=== PATIENT | male | born 1970 | race African-American/Black ===

== ENCOUNTER 2021-05-18 07:15 | Inpatient (IN) | payer MEDICAID ==
[~2021-05-18] VITALS: Ht 172.7 cm; Wt 75.2 kg
[~2021-05-18 07:15] MED LIST: RISP1TAB48 PO
[2021-05-18] MEDS ORDERED: KETOROLAC TROMETHAMINE 30 MG/ML VIAL IVP ONE (07:45)
[2021-05-18] MEDS ORDERED: SODIUM CHLORIDE 0.9% 1,000 ML IV ONE (07:45)
[2021-05-18] MEDS ORDERED: ACETAMINOPHEN 500 MG TABLET PO ONE (07:45)
[2021-05-18 08:15] LABS: BASOPHILS % (AUTO) 0.4 % (0.0-2.0); EOSINOPHILS % (AUTO) 0.7 % (1.0-6.0); HEMOGLOBIN 14.1 g/dL (13.5-17.5); LYMPHOCYTES # (AUTO) 1.6 K/uL (1.0-4.8); LYMPHOCYTES % (AUTO) 27.5 % (22.0-44.0); MEAN CORPUSCULAR HEMOGLOBIN 30.5 pg (26.0-34.0); MEAN CORPUSCULAR HGB CONC 33.6 G/dL (31.0-37.0); MEAN CORPUSCULAR VOLUME 91 fL (80-100); MONOCYTES # (AUTO) 0.5 K/uL (0.1-1.0); NEUTROPHILS # (AUTO) 3.7 K/uL (1.8-7.7); NEUTROPHILS % (AUTO) 62.4 % (40.0-70.0); PLATELET COUNT (AUTO) 347 K/uL (150-450); RED BLOOD CELL COUNT(AUTO) 4.63 MIL/uL (4.50-5.90)
[2021-05-18 08:16] LABS: COVID AG,FIA SOURCE NASOPHARYNGEAL
[2021-05-18 08:23] LABS: ANION GAP 9 mmol/L (8-16); CALCIUM, TOTAL 8.9 mg/dL (8.8-10.5); CARBON DIOXIDE 27 mmol/L (22-29); CHLORIDE 103 mmol/L (98-107); GLOMERULAR FILTR. RATE CALC > 60 mL/min (>60); GLUCOSE,RANDOM 109 mg/dL (70-110); POTASSIUM 4.8 mmol/L (3.5-5.1); SODIUM SERUM 139 mmol/L (136-145); UREA NITROGEN, BLOOD 25 mg/dL (7-18)
[2021-05-18 08:29] LABS: ALANINE AMINOTRANSFERASE 163 U/L (12-78); ALBUMIN 3.5 g/dL (3.4-5.0); ALKALINE PHOSPHATASE 135 U/L (46-116); ASPARTATE AMINOTRANSFERASE 69 U/L (15-37); BILIRUBIN,TOTAL 0.7 mg/dL (0.1-1.0)
[2021-05-18 08:39] LABS: INFLUENZA TYPE A NEGATIVE FOR TYPE A (NEGATIVE); INFLUENZA TYPE B NEGATIVE FOR TYPE B (NEGATIVE)
[2021-05-18 08:42] LABS: B-TYPE NATRIURETIC PEPTIDE 801 pg/mL (0-100)
[2021-05-18] MEDS ORDERED: AZITHROMYCIN 500 MG/NS 250 ML IV ONE (09:00)
[2021-05-18] MEDS ORDERED: CefTRIAXone 1 GM/DEXTROSE 50 ML IV ONE (09:00)
[2021-05-18] MEDS ORDERED: NITROGLYCERIN 2% (1 GM=INCH) PACKET TP ONE (09:00)
[2021-05-18] MEDS ORDERED: ASPIRIN 325 MG TABLET PO ONE (09:00)
[2021-05-18] MEDS ORDERED: ONDANSETRON HCL 4 MG/2 ML VIAL IVP ONE (09:30)
[2021-05-18] MEDS ORDERED: 0.9% SODIUM CHLORIDE 10 ML SYRINGE IVP PRN (09:45)
[2021-05-18] MEDS ORDERED: MORPHINE SULFATE 10 MG/ML VIAL IVP ONE (09:45)
[2021-05-18] MEDS ORDERED: ONDANSETRON HCL 4 MG/2 ML VIAL IVP PRN ×2 (09:45→20:00)
[2021-05-18] MEDS ORDERED: ACETAMINOPHEN 325 MG TABLET PO PRN ×2 (09:45→20:00)
[2021-05-18 10:09] LABS: CREATINE KINASE, TOTAL ONLY 119 U/L (39-308); FREE T4 (FREE THYROXINE) 1.33 ng/dL (0.76-1.46); THYROID STIMULATING HORMONE 1.89 uIU/mL (0.36-3.74)
[2021-05-18] MEDS ORDERED: SODIUM CHLORIDE 0.9% 500 ML IV ONE (10:30)
[2021-05-18] MEDS ORDERED: HEPARIN SODIUM,PORCINE 5,000 UNITS/ML VIAL IVP PRN ×2 (11:15)
[2021-05-18] MEDS ORDERED: HEPARIN SODIUM 25000 UNITS/D5W 250 ML IV PRN (11:15)
[2021-05-18] MEDS ORDERED: NITROGLYCERIN 0.4 MG SUBLINGUAL TABLET #25 SL PRN (11:45)
[2021-05-18] MEDS ORDERED: FUROSEMIDE 40 MG/4 ML VIAL IVP ONE ×2 (12:15→17:15)
[2021-05-18 12:26] LABS: GLUCOSE,POINT OF CARE 163 MG/DL (70-110)
[2021-05-18] MEDS ORDERED: BISACODYL 10 MG RECTAL RECTAL SUPPOSITORY PR PRN (20:00)
[2021-05-18] MEDS ORDERED: ALBUTEROL SULFATE 2.5 MG/0.5 ML NEB SOLUTION NEB PRN (20:00)
[2021-05-18] MEDS ORDERED: HYDROCODONE/ACETAMINOPHEN 5-325 MG TABLET PO PRN (20:00)
[2021-05-18] MEDS ORDERED: MAGNESIUM HYDROXIDE SUSPENSION 30 ML UDCUP PO PRN (20:00)
[2021-05-18] MEDS ORDERED: IPRATROPIUM BROMIDE 0.5 MG/2.5 ML NEB SOLUTION NEB PRN (20:00)
[2021-05-18] MEDS: FUROSEMIDE 40 MG/4 ML VIAL IVP SCH (20:26)
[2021-05-18] MEDS: CARVEDILOL 3.125 MG TABLET PO SCH (20:26)
[2021-05-18] MEDS ORDERED: CARVEDILOL 3.125 MG TABLET PO SCH (21:00)
[2021-05-19] MEDS ORDERED: LORazepam 2 MG/ML VIAL IVP ONE (00:45)
[2021-05-19] MEDS ORDERED: HEPARIN SODIUM,PORCINE 5,000 UNITS/ML VIAL IVP PRN ×2 (05:15)
[2021-05-19] MEDS ORDERED: HEPARIN SODIUM 25000 UNITS/D5W 250 ML IV PRN (05:15)
[2021-05-19 05:34] LABS: BASOPHILS % (AUTO) 0.7 % (0.0-2.0); EOSINOPHILS % (AUTO) 0.9 % (1.0-6.0); HEMATOCRIT 38.6 % (41-53); HEMOGLOBIN 12.9 g/dL (13.5-17.5); LYMPHOCYTES # (AUTO) 2.6 K/uL (1.0-4.8); LYMPHOCYTES % (AUTO) 34.5 % (22.0-44.0); MEAN CORPUSCULAR HEMOGLOBIN 30.1 pg (26.0-34.0); MEAN CORPUSCULAR HGB CONC 33.3 G/dL (31.0-37.0); MEAN CORPUSCULAR VOLUME 90 fL (80-100); MONOCYTES # (AUTO) 0.9 K/uL (0.1-1.0); MONOCYTES % (AUTO) 12.3 % (2.0-9.0); NEUTROPHILS # (AUTO) 3.9 K/uL (1.8-7.7); NEUTROPHILS % (AUTO) 51.6 % (40.0-70.0); PLATELET COUNT (AUTO) 321 K/uL (150-450); RED BLOOD CELL COUNT(AUTO) 4.27 MIL/uL (4.50-5.90); RED CELL DISTRIBUTION WIDTH 13.1 % (11.5-14.5)
[2021-05-19 05:51] LABS: BILIRUBIN,TOTAL 0.7 mg/dL (0.1-1.0); CALCIUM, TOTAL 8.1 mg/dL (8.8-10.5); CHOL/HDL RATIO 2.4 (4.2-7.3); CREATININE 1.55 mg/dL (0.60-1.30); HEMOGLOBIN A1C 5.4 % (3.8-5.6); POTASSIUM 4.4 mmol/L (3.5-5.1); TOTAL PROTEIN, SERUM 6.1 g/dL (6.4-8.2)
[2021-05-19] MEDS: FUROSEMIDE 40 MG/4 ML VIAL IVP SCH (09:15)
[2021-05-19] MEDS: PANTOPRAZOLE SODIUM 40 MG/VIAL IVP SCH (09:41)
[2021-05-19] MEDS: CARVEDILOL 3.125 MG TABLET PO SCH (09:42)
[2021-05-19] MEDS: MORPHINE SULFATE 2 MG/ML SYRINGE IVP PRN ×2 (09:42→14:04)
[2021-05-19] MEDS: ATORVASTATIN CALCIUM 20 MG TABLET PO SCH (10:23)
[2021-05-19] MEDS: ASPIRIN 81 MG DR TABLET PO SCH (10:23)
[2021-05-19 11:10] VITALS: BP 176/103
[2021-05-19] MEDS: HydrALAZINE HCL 20 MG/ML VIAL IVP PRN (14:04)
[2021-05-19 19:20] VITALS: BP 126/93
[2021-05-19 20:00] VITALS: BP 129/93
[2021-05-19] MEDS: CARVEDILOL 12.5 MG TABLET PO SCH (21:12)
[2021-05-19 22:00] VITALS: BP 120/88
[2021-05-19] MEDS: ZOLPIDEM TARTRATE 5 MG TABLET PO PRN (23:21)
[2021-05-19 23:40] VITALS: BP 122/89
[2021-05-20] VITALS (10 sets, daily range): BP systolic 116–143; BP diastolic 62–102
[2021-05-20 06:49] LABS: BASOPHILS % (AUTO) 0.5 % (0.0-2.0); EOSINOPHILS % (AUTO) 0.7 % (1.0-6.0); HEMATOCRIT 38.8 % (41-53); HEMOGLOBIN 13.4 g/dL (13.5-17.5); LYMPHOCYTES % (AUTO) 28.7 % (22.0-44.0); MEAN CORPUSCULAR HEMOGLOBIN 30.9 pg (26.0-34.0); MEAN CORPUSCULAR HGB CONC 34.4 G/dL (31.0-37.0); MEAN CORPUSCULAR VOLUME 90 fL (80-100); MONOCYTES # (AUTO) 0.6 K/uL (0.1-1.0); MONOCYTES % (AUTO) 9.2 % (2.0-9.0); NEUTROPHILS # (AUTO) 4.1 K/uL (1.8-7.7); NEUTROPHILS % (AUTO) 60.9 % (40.0-70.0); PLATELET COUNT (AUTO) 311 K/uL (150-450); RED BLOOD CELL COUNT(AUTO) 4.33 MIL/uL (4.50-5.90); RED CELL DISTRIBUTION WIDTH 12.8 % (11.5-14.5)
[2021-05-20 06:58] LABS: ANION GAP 5 mmol/L (8-16); CALCIUM, TOTAL 8.8 mg/dL (8.8-10.5); CARBON DIOXIDE 29 mmol/L (22-29); CHLORIDE 101 mmol/L (98-107); CREATININE 1.34 mg/dL (0.60-1.30); GLOMERULAR FILTR. RATE CALC > 60 mL/min (>60); GLUCOSE,RANDOM 97 mg/dL (70-110); POTASSIUM 4.6 mmol/L (3.5-5.1); SODIUM SERUM 135 mmol/L (136-145); UREA NITROGEN, BLOOD 20 mg/dL (7-18)
[2021-05-20 07:10] LABS: B-TYPE NATRIURETIC PEPTIDE 757 pg/mL (0-100)
[2021-05-20] MEDS: LOSARTAN POTASSIUM 25 MG TABLET PO SCH (08:36)
[2021-05-20] MEDS: PANTOPRAZOLE SODIUM 40 MG/VIAL IVP SCH (08:36)
[2021-05-20] MEDS: FUROSEMIDE 20 MG/2 ML VIAL IVP SCH (08:36)
[2021-05-20] MEDS: ATORVASTATIN CALCIUM 20 MG TABLET PO SCH (08:37)
[2021-05-20] MEDS: CARVEDILOL 12.5 MG TABLET PO SCH ×2 (08:37→19:56)
[2021-05-20] MEDS: ASPIRIN 81 MG DR TABLET PO SCH (08:38)
[2021-05-20] MEDS: LORazepam 2 MG/ML VIAL IVP PRN ×2 (14:37→22:11)
[2021-05-20] MEDS: ZOLPIDEM TARTRATE 5 MG TABLET PO PRN (19:56)
[2021-05-20 23:02] LABS: AMPHET/METH SCREEN,URINE POSITIVE (NEGATIVE); BARBITURATE SCREEN, URINE NEGATIVE (NEGATIVE); BENZODIAZEPINES SCREEN,URINE NEGATIVE (NEGATIVE); CANNABINOID SCREEN,URINE POSITIVE (NEGATIVE); COCAINE SCREEN,URINE NEGATIVE (NEGATIVE); METHADONE SCREEN, URINE NEGATIVE (NEGATIVE); OPIATE SCREEN,URINE POSITIVE (NEGATIVE); PHENCYCLIDINE SCREEN,URINE NEGATIVE (NEGATIVE)
[2021-05-21] VITALS (7 sets, daily range): BP systolic 121–152; BP diastolic 73–110
[2021-05-21] MEDS: HydrALAZINE HCL 20 MG/ML VIAL IVP PRN (03:42)
[2021-05-21] MEDS: LORazepam 2 MG/ML VIAL IVP PRN ×4 (04:41→22:12)
[2021-05-21] MEDS: LOSARTAN POTASSIUM 25 MG TABLET PO SCH (08:27)
[2021-05-21] MEDS: FUROSEMIDE 20 MG/2 ML VIAL IVP SCH (08:27)
[2021-05-21] MEDS: PANTOPRAZOLE SODIUM 40 MG/VIAL IVP SCH (08:27)
[2021-05-21] MEDS: CARVEDILOL 12.5 MG TABLET PO SCH (08:28)
[2021-05-21] MEDS: ASPIRIN 81 MG DR TABLET PO SCH (08:28)
[2021-05-21] MEDS: ATORVASTATIN CALCIUM 20 MG TABLET PO SCH (08:28)
[2021-05-21] MEDS: CARVEDILOL 25 MG TABLET PO SCH (20:32)
[2021-05-21] MEDS: ZOLPIDEM TARTRATE 5 MG TABLET PO PRN (22:12)
[2021-05-22] MEDS: LORazepam 2 MG/ML VIAL IVP PRN (05:28)
[2021-05-22] MEDS: LOSARTAN POTASSIUM 25 MG TABLET PO SCH (08:34)
[2021-05-22] MEDS: PANTOPRAZOLE SODIUM 40 MG/VIAL IVP SCH (08:34)
[2021-05-22] MEDS: ASPIRIN 81 MG DR TABLET PO SCH (08:34)
[2021-05-22] MEDS: CARVEDILOL 25 MG TABLET PO SCH (08:34)
[2021-05-22] MEDS: FUROSEMIDE 20 MG/2 ML VIAL IVP SCH (08:34)
[2021-05-22] MEDS: ATORVASTATIN CALCIUM 20 MG TABLET PO SCH (08:34)
[2021-05-22 09:06] VITALS: BP 121/79
[2021-05-22] MEDS ORDERED: CARV25 PO (10:56)
[2021-05-22] MEDS ORDERED: FURO20 PO (10:57)
[2021-05-22] MEDS ORDERED: LOSA-381 PO (10:57)
[2021-05-23] MEDS ORDERED: FUROSEMIDE 20 MG TABLET PO SCH (09:00)
== END 2021-05-22 14:25 | disposition home or self-care (01) | DRG 194 ==
LOC: EMS 07:20 → 5N 11:25 → AHU 18:01 → 5N 05-19 11:36 → 5S 05-20 18:00
PROVIDERS: ADMIT Internal Medicine; ATTEND Hospitalist
DX: I13.0 Hypertensive heart and chronic kidney disease with heart failure and stage 1 through stage 4 chronic kidney disease, or unspecified chronic kidney disease (principal); N17.9 Acute kidney failure, unspecified; E86.0 Dehydration; J91.8 Pleural effusion in other conditions classified elsewhere; I50.23 Acute on chronic systolic (congestive) heart failure; I24.8 Other forms of acute ischemic heart disease; I42.8 Other cardiomyopathies; N18.30 Chronic kidney disease, stage 3 unspecified; G47.00 Insomnia, unspecified; F15.10 Other stimulant abuse, uncomplicated; F17.210 Nicotine dependence, cigarettes, uncomplicated; F14.90 Cocaine use, unspecified, uncomplicated; Z20.822 Contact with and (suspected) exposure to COVID-19; Z79.899 Other long term (current) drug therapy; Z71.51 Drug abuse counseling and surveillance of drug abuser; Z79.82 Long term (current) use of aspirin
CPT/HCPCS: 71045; 80048; 80053; 80061; 80307; 82550; 82962; 83036; 83735; 83880; 84439; 84443; 84484; 85025; 85730; 87040; 87804; 93005; 93306; 99291; C9113; G0378; G0480; J0360; J0456; J0696; J1644; J1885; J1940; J2060; J2270; J2405; J7030; 36415-L1; 36415-TC; U0003

== ENCOUNTER 2021-05-31 04:42 | Emergency (ER) | payer MEDICAID ==
[~2021-05-31] VITALS: Ht 172.7 cm; Wt 105.3 kg
[~2021-05-31 04:42] MED LIST changes: +CARV25 PO; +FURO20 PO; +LOSA-381 PO; -RISP1TAB48 PO
[2021-05-31 05:20] LABS: COVID AG,FIA SOURCE NASAL SWAB
[2021-05-31 05:21] LABS: BASOPHILS % (AUTO) 0.7 % (0.0-2.0); EOSINOPHILS % (AUTO) 1.1 % (1.0-6.0); HEMATOCRIT 39.5 % (41-53); HEMOGLOBIN 13.1 g/dL (13.5-17.5); LYMPHOCYTES # (AUTO) 2.1 K/uL (1.0-4.8); LYMPHOCYTES % (AUTO) 37.5 % (22.0-44.0); MEAN CORPUSCULAR HEMOGLOBIN 30.3 pg (26.0-34.0); MEAN CORPUSCULAR HGB CONC 33.1 G/dL (31.0-37.0); MEAN CORPUSCULAR VOLUME 92 fL (80-100); MONOCYTES # (AUTO) 0.6 K/uL (0.1-1.0); MONOCYTES % (AUTO) 11.1 % (2.0-9.0); NEUTROPHILS # (AUTO) 2.8 K/uL (1.8-7.7); NEUTROPHILS % (AUTO) 49.6 % (40.0-70.0); PLATELET COUNT (AUTO) 343 K/uL (150-450); RED CELL DISTRIBUTION WIDTH 13.5 % (11.5-14.5)
[2021-05-31 05:49] LABS: APPEARANCE,URINE CLEAR (CLEAR); BILIRUBIN,URINE NEGATIVE (NEGATIVE); GLUCOSE, URINE (UA) NEGATIVE (NEGATIVE); KETONES,URINE NEGATIVE (NEGATIVE); LEUKOCYTE ESTERASE ,URINE NEGATIVE (NEGATIVE); NITRATE,URINE NEGATIVE (NEGATIVE); OCCULT BLOOD,URINE TRACE (NEGATIVE); PROTEIN,URINE NEGATIVE (NEGATIVE); UROBILINOGEN,URINE 0.2 mg/dL (<=1.0)
[2021-05-31 05:50] LABS: ALANINE AMINOTRANSFERASE 180 U/L (12-78); ALBUMIN 3.2 g/dL (3.4-5.0); ALKALINE PHOSPHATASE 98 U/L (46-116); ANION GAP 8 mmol/L (8-16); ASPARTATE AMINOTRANSFERASE 109 U/L (15-37); BILIRUBIN,TOTAL 0.5 mg/dL (0.1-1.0); CALCIUM, TOTAL 8.5 mg/dL (8.8-10.5); CARBON DIOXIDE 27 mmol/L (22-29); CHLORIDE 105 mmol/L (98-107); CREATINE KINASE, TOTAL ONLY 86 U/L (39-308); CREATININE 1.16 mg/dL (0.60-1.30); GLOMERULAR FILTR. RATE CALC > 60 mL/min (>60); GLUCOSE,RANDOM 124 mg/dL (70-110); POTASSIUM 4.5 mmol/L (3.5-5.1); SODIUM SERUM 140 mmol/L (136-145); TOTAL PROTEIN, SERUM 6.7 g/dL (6.4-8.2); UREA NITROGEN, BLOOD 19 mg/dL (7-18)
[2021-05-31 05:52] LABS: B-TYPE NATRIURETIC PEPTIDE 1070 pg/mL (0-100)
[2021-05-31 05:54] LABS: AMPHET/METH SCREEN,URINE POSITIVE (NEGATIVE); BACTERIA,URINE Rare /HPF (None Seen); BARBITURATE SCREEN, URINE NEGATIVE (NEGATIVE); BENZODIAZEPINES SCREEN,URINE NEGATIVE (NEGATIVE); CANNABINOID SCREEN,URINE POSITIVE (NEGATIVE); COCAINE SCREEN,URINE NEGATIVE (NEGATIVE); METHADONE SCREEN, URINE NEGATIVE (NEGATIVE); OPIATE SCREEN,URINE NEGATIVE (NEGATIVE); WBC,URINE 0-2 /HPF (0-5)
[2021-05-31 05:56] LABS: PHENCYCLIDINE SCREEN,URINE NEGATIVE (NEGATIVE)
[2021-05-31] MEDS ORDERED: FUROSEMIDE 20 MG/2 ML VIAL IVP ONE ×2 (06:30→07:30)
[2021-05-31 08:06] VITALS: BP 118/76
[2021-06-20] MEDS ORDERED: LOSA-381 PO (11:27)
== END 2021-05-31 08:43 | disposition home or self-care (01) ==
LOC: EMS 04:43
DX: I50.9 Heart failure, unspecified (principal); J44.9 Chronic obstructive pulmonary disease, unspecified; F17.210 Nicotine dependence, cigarettes, uncomplicated; F12.90 Cannabis use, unspecified, uncomplicated; F15.90 Other stimulant use, unspecified, uncomplicated; F14.90 Cocaine use, unspecified, uncomplicated; Z79.899 Other long term (current) drug therapy; Z20.822 Contact with and (suspected) exposure to COVID-19
CPT/HCPCS: 36415; 71045; 80053; 80307; 81001; 82550; 83880; 84484; 85025; 85379; 87040; 87077; 87205; 87426; 93005; 96374; 96376; 99285; J1940

== ENCOUNTER 2021-06-27 15:22 | Inpatient (IN) | payer MEDICAID ==
[~2021-06-27] VITALS: Ht 172.7 cm; Wt 75.0 kg
[2021-06-27] MEDS ORDERED: IOHEXOL 350 MG/ML 100 ML VIAL ONE (15:36)
[2021-06-27] MEDS ORDERED: SODIUM CHLORIDE 0.9% 100 ML ONE (15:36)
[2021-06-27] MEDS ORDERED: ALTEPLASE PER STROKE PROTOCOL CLINICAL ONE ×2 (15:45)
[2021-06-27] MEDS ORDERED: WATER FOR INJECTION STERILE IV ONE ×2 (16:00)
[2021-06-27] MEDS ORDERED: ALTEPLASE IV ONE ×2 (16:00)
[2021-06-27 16:04] LABS: BASOPHILS % (AUTO) 0.4 % (0.0-2.0); EOSINOPHILS % (AUTO) 0.9 % (1.0-6.0); HEMATOCRIT 42.6 % (41-53); HEMOGLOBIN 14.1 g/dL (13.5-17.5); LYMPHOCYTES % (AUTO) 38.1 % (22.0-44.0); MEAN CORPUSCULAR HEMOGLOBIN 29.9 pg (26.0-34.0); MEAN CORPUSCULAR HGB CONC 33.2 G/dL (31.0-37.0); MEAN CORPUSCULAR VOLUME 90 fL (80-100); MONOCYTES # (AUTO) 0.4 K/uL (0.1-1.0); MONOCYTES % (AUTO) 7.8 % (2.0-9.0); NEUTROPHILS # (AUTO) 2.8 K/uL (1.8-7.7); NEUTROPHILS % (AUTO) 52.8 % (40.0-70.0); PLATELET COUNT (AUTO) 264 K/uL (150-450); RED BLOOD CELL COUNT(AUTO) 4.72 MIL/uL (4.50-5.90); RED CELL DISTRIBUTION WIDTH 13.4 % (11.5-14.5)
[2021-06-27 16:14] LABS: ANION GAP 7 mmol/L (8-16); CALCIUM, TOTAL 9.1 mg/dL (8.8-10.5); CARBON DIOXIDE 30 mmol/L (22-29); CHLORIDE 104 mmol/L (98-107); GLUCOSE,RANDOM 112 mg/dL (70-110); INR 1.1 (0.9-1.1); POTASSIUM 3.9 mmol/L (3.5-5.1); PROTHROMBIN TIME 11.2 SEC (9.4-11.6); SODIUM SERUM 141 mmol/L (136-145); UREA NITROGEN, BLOOD 19 mg/dL (7-18)
[2021-06-27 16:17] LABS: GLOMERULAR FILTR. RATE CALC > 60 mL/min (>60)
[2021-06-27 16:29] LABS: ALANINE AMINOTRANSFERASE 52 U/L (12-78); ALBUMIN 3.5 g/dL (3.4-5.0); ALKALINE PHOSPHATASE 86 U/L (46-116); ASPARTATE AMINOTRANSFERASE 25 U/L (15-37); TOTAL PROTEIN, SERUM 7.2 g/dL (6.4-8.2)
[2021-06-27 17:06] LABS: APPEARANCE,URINE CLEAR (CLEAR); BILIRUBIN,URINE NEGATIVE (NEGATIVE); GLUCOSE, URINE (UA) NEGATIVE (NEGATIVE); KETONES,URINE NEGATIVE (NEGATIVE); LEUKOCYTE ESTERASE ,URINE NEGATIVE (NEGATIVE); NITRATE,URINE NEGATIVE (NEGATIVE); OCCULT BLOOD,URINE LARGE (NEGATIVE); PH,URINE 6.5 (5.0-8.0); PROTEIN,URINE TRACE mg/dL (NEGATIVE); UROBILINOGEN,URINE <=1.0 mg/dL (<=1.0)
[2021-06-27 17:11] LABS: AMPHET/METH SCREEN,URINE POSITIVE (NEGATIVE); BARBITURATE SCREEN, URINE NEGATIVE (NEGATIVE); BENZODIAZEPINES SCREEN,URINE NEGATIVE (NEGATIVE); CANNABINOID SCREEN,URINE POSITIVE (NEGATIVE); COCAINE SCREEN,URINE NEGATIVE (NEGATIVE); METHADONE SCREEN, URINE NEGATIVE (NEGATIVE); OPIATE SCREEN,URINE NEGATIVE (NEGATIVE)
[2021-06-27 17:13] LABS: PHENCYCLIDINE SCREEN,URINE NEGATIVE (NEGATIVE)
[2021-06-27 17:17] LABS: SPECIFIC GRAVITIY, URINE > 1.030 (1.003-1.030)
[2021-06-27 17:24] LABS: BACTERIA,URINE None Seen /HPF (None Seen); RBC,URINE 26-50 /HPF (0-2); SQUAMOUS EPITHELIAL CELL,UR Few /LPF (None Seen); WBC,URINE None Seen /HPF (0-5)
[2021-06-27] MEDS ORDERED: 0.9% SODIUM CHLORIDE 10 ML SYRINGE IVP PRN (18:00)
[2021-06-27] MEDS ORDERED: ACETAMINOPHEN 325 MG TABLET PO PRN ×2 (18:00→19:00)
[2021-06-27] MEDS ORDERED: ONDANSETRON HCL 4 MG/2 ML VIAL IVP PRN ×2 (18:00→19:00)
[2021-06-27] MEDS ORDERED: ZOLPIDEM TARTRATE 5 MG TABLET PO PRN (19:00)
[2021-06-27] MEDS ORDERED: MORPHINE SULFATE 2 MG/ML SYRINGE IVP PRN (19:00)
[2021-06-27] MEDS ORDERED: MAGNESIUM HYDROXIDE SUSPENSION 30 ML UDCUP PO PRN (19:00)
[2021-06-27] MEDS ORDERED: BISACODYL 10 MG RECTAL RECTAL SUPPOSITORY PR PRN (19:00)
[2021-06-27] MEDS ORDERED: HYDROCODONE/ACETAMINOPHEN 5-325 MG TABLET PO PRN (19:00)
[2021-06-27 20:00] VITALS: BP 145/97
[2021-06-27] MEDS: ATORVASTATIN CALCIUM 20 MG TABLET PO SCH (21:28)
[2021-06-27] MEDS: CARVEDILOL 25 MG TABLET PO SCH (21:28)
[2021-06-27] MEDS: ETHYL ALCOHOL 62% ANTISEPTIC NASAL INHALANT 0.6 ML AMPUL NASAL SCH (21:28)
[2021-06-27] MEDS: DOCUSATE SODIUM 100 MG CAPSULE PO SCH (21:28)
[2021-06-27] MEDS: LOSARTAN POTASSIUM 25 MG TABLET PO SCH (21:28)
[2021-06-28] VITALS (7 sets, daily range): BP systolic 112–154; BP diastolic 80–104
[2021-06-28 05:39] LABS: BASOPHILS % (AUTO) 0.3 % (0.0-2.0); EOSINOPHILS % (AUTO) 0.7 % (1.0-6.0); HEMATOCRIT 43.3 % (41-53); HEMOGLOBIN 14.1 g/dL (13.5-17.5); LYMPHOCYTES # (AUTO) 1.6 K/uL (1.0-4.8); LYMPHOCYTES % (AUTO) 24.7 % (22.0-44.0); MEAN CORPUSCULAR HEMOGLOBIN 29.4 pg (26.0-34.0); MEAN CORPUSCULAR HGB CONC 32.6 G/dL (31.0-37.0); MEAN CORPUSCULAR VOLUME 90 fL (80-100); MONOCYTES # (AUTO) 0.5 K/uL (0.1-1.0); MONOCYTES % (AUTO) 7.3 % (2.0-9.0); NEUTROPHILS # (AUTO) 4.5 K/uL (1.8-7.7); PLATELET COUNT (AUTO) 250 K/uL (150-450); RED BLOOD CELL COUNT(AUTO) 4.81 MIL/uL (4.50-5.90)
[2021-06-28 06:05] LABS: ALANINE AMINOTRANSFERASE 35 U/L (12-78); ALBUMIN 3.1 g/dL (3.4-5.0); ALKALINE PHOSPHATASE 77 U/L (46-116); ANION GAP 8 mmol/L (8-16); ASPARTATE AMINOTRANSFERASE 17 U/L (15-37); BILIRUBIN,TOTAL 1.3 mg/dL (0.1-1.0); CALCIUM, TOTAL 8.7 mg/dL (8.8-10.5); CARBON DIOXIDE 26 mmol/L (22-29); CHLORIDE 104 mmol/L (98-107); CREATININE 1.09 mg/dL (0.60-1.30); GLOMERULAR FILTR. RATE CALC > 60 mL/min (>60); GLUCOSE,RANDOM 103 mg/dL (70-110); POTASSIUM 4.1 mmol/L (3.5-5.1); SODIUM SERUM 138 mmol/L (136-145); THYROID STIMULATING HORMONE 0.97 uIU/mL (0.36-3.74); TOTAL PROTEIN, SERUM 6.4 g/dL (6.4-8.2); UREA NITROGEN, BLOOD 14 mg/dL (7-18)
[2021-06-28] MEDS ORDERED: ASPIRIN 81 MG CHEWABLE TABLET PO SCH (08:00)
[2021-06-28 09:24] LABS: CHOL/HDL RATIO 2.7 (4.2-7.3); CHOLESTEROL 131 mg/dL (131-200); HDL CHOLESTEROL 49 mg/dL (40-60); LDL CHOL (CALC.) 65 mg/dL (0-130); TRIGLYCERIDES 85 mg/dL (15-150)
[2021-06-28] MEDS: ETHYL ALCOHOL 62% ANTISEPTIC NASAL INHALANT 0.6 ML AMPUL NASAL SCH ×2 (10:23→20:51)
[2021-06-28] MEDS: LOSARTAN POTASSIUM 25 MG TABLET PO SCH ×2 (10:23→20:52)
[2021-06-28] MEDS: DOCUSATE SODIUM 100 MG CAPSULE PO SCH ×2 (10:23→20:52)
[2021-06-28] MEDS: CARVEDILOL 25 MG TABLET PO SCH ×2 (10:23→20:52)
[2021-06-28] MEDS: PANTOPRAZOLE SODIUM 40 MG DR TABLET PO SCH (10:23)
[2021-06-28] MEDS: FUROSEMIDE 20 MG TABLET PO SCH (10:41)
[2021-06-28] MEDS: ATORVASTATIN CALCIUM 20 MG TABLET PO SCH (20:53)
[2021-06-29 04:55] VITALS: BP 122/74
[2021-06-29 07:35] VITALS: BP 149/93
[2021-06-29] MEDS ORDERED: ASPIRIN 81 MG CHEWABLE TABLET PO SCH (08:00)
[2021-06-29] MEDS: PANTOPRAZOLE SODIUM 40 MG DR TABLET PO SCH (09:14)
[2021-06-29] MEDS: CARVEDILOL 25 MG TABLET PO SCH (09:14)
[2021-06-29] MEDS: FUROSEMIDE 20 MG TABLET PO SCH (09:14)
[2021-06-29] MEDS: DOCUSATE SODIUM 100 MG CAPSULE PO SCH (09:14)
[2021-06-29] MEDS: ETHYL ALCOHOL 62% ANTISEPTIC NASAL INHALANT 0.6 ML AMPUL NASAL SCH (09:14)
[2021-06-29] MEDS: LOSARTAN POTASSIUM 25 MG TABLET PO SCH (09:14)
[2021-06-29 11:29] VITALS: BP 138/90
[2021-06-29] MEDS ORDERED: ASPI81 PO (12:54)
[2021-06-29] MEDS ORDERED: ATOR20TA65 PO (12:54)
== END 2021-06-29 13:30 | disposition home or self-care (01) | DRG 45 ==
LOC: EMS 15:26 → ICU 18:26 → 5N 06-28 17:45
PROVIDERS: ADMIT Internal Medicine; ATTEND Internal Medicine
DX: I63.9 Cerebral infarction, unspecified (principal); G81.94 Hemiplegia, unspecified affecting left nondominant side; I42.9 Cardiomyopathy, unspecified; I13.0 Hypertensive heart and chronic kidney disease with heart failure and stage 1 through stage 4 chronic kidney disease, or unspecified chronic kidney disease; I50.9 Heart failure, unspecified; I48.91 Unspecified atrial fibrillation; J44.9 Chronic obstructive pulmonary disease, unspecified; N18.30 Chronic kidney disease, stage 3 unspecified; R29.810 Facial weakness; F14.90 Cocaine use, unspecified, uncomplicated; Z86.73 Personal history of transient ischemic attack (TIA), and cerebral infarction without residual deficits; Z79.899 Other long term (current) drug therapy; Z87.891 Personal history of nicotine dependence; Z79.82 Long term (current) use of aspirin
CPT/HCPCS: 70450; 70496; 70498; 70551; 71045; 80053; 80061; 81001; 84443; 84484; 85025; 85610; 85730; 86850; 86900; 86901; 87081; 92610; 93005; 93308; 93880; 97162; 97165; 97535; 99285; G0378; J2997; J7050; Q9967; 36415-L1; 36415-TC

== ENCOUNTER → 2021-10-12 | Outpatient (CLI) | payer MEDICAID ==
[~2021-10-12] MED LIST changes: +ASPI81 PO; +ATOR20TA65 PO; +PERFLUTREN PROTEIN-A MICROSPHERES 0.22 MG/ML 3 ML VIAL IVP ONE
== END | disposition home or self-care (01) ==
LOC: RADPV 08:35
PROVIDERS: ATTEND Internal Medicine
DX: I08.8 Other rheumatic multiple valve diseases (principal); I50.9 Heart failure, unspecified
CPT/HCPCS: C8929; Q9967; C8928